=== PATIENT | female | born 1960 | race Two or more races ===

== ENCOUNTER 2024-12-20 12:46 | Outpatient (CLI) | payer OTHER ==
[~2024-12-20 12:46] MED LIST: LIPITOR20 MG; LIPITOR20 MG PO; RELPAX20 MG; TENCON 50-3251 EACH PO
== END 2024-12-20 13:07 | disposition home or self-care (01) ==
LOC: MRI 12:46
PROVIDERS: ATTEND Orthopaedic Surgery
DX: M25.572 Pain in left ankle and joints of left foot (principal)
CPT/HCPCS: 73721

== ENCOUNTER 2025-02-28 10:31 | Outpatient (CLI) | payer OTHER | END 2025-02-28 10:33 | disposition home or self-care (01) | LOC: MAMO-SONO 10:31 | PROVIDERS: ATTEND General Practice | DX: N64.4 Mastodynia (principal); Z12.31 Encounter for screening mammogram for malignant neoplasm of breast ==

== ENCOUNTER 2025-03-14 09:24 | Outpatient (CLI) | payer OTHER | END 2025-03-14 09:25 | disposition home or self-care (01) | LOC: NUCLEAR 09:24 | PROVIDERS: ATTEND General Practice | DX: M81.0 Age-related osteoporosis without current pathological fracture (principal) ==